=== PATIENT | male | born 2005 | race Caucasian/White ===

== ENCOUNTER 2023-06-17 00:21 | Inpatient (IN) | payer OTHER ==
--- NOTE | 2023-06-17 00:44 | ED ---
Psych HPI - General Source: patient, family, police, RN notes reviewed, old records reviewed Limitations: no limitations - History of Present Illness MD Complaint: altered mental status Associated Psychiatric Symptoms: racing thoughts, delusions Quality: constant Improves With: none Associated Symptoms: denies other symptoms Treatments Prior to Arrival: placed on mental health hold If Self Harm: admits thoughts of self harm <Kornad Tellez - Last Filed: 06/17/23 07:55> <Konrad Shah - Last Filed: 06/17/23 13:53> - General Chief Complaint: Psychiatric Symptoms Stated Complaint: Petition Time Seen by Provider: 06/17/23 00:36 - History of Present Illness Initial Comments: This is a 18-year-old male to the emergency department for evaluation of psychiatric illness. Patient has significant psychiatric disease and presenting with psychosis psychotic take symptoms but denying homicidal or suicidal thoughts. (Konrad Tellez) - Related Data Allergies Allergy/AdvReac Type Severity Reaction Status Date / Time No Known Allergies Allergy Verified 06/17/23 12:11 Review of Systems ROS Other: All systems not noted in ROS Statement are negative. <Konrad Tellez - Last Filed: 06/17/23 07:55> ROS Other: All systems not noted in ROS Statement are negative. <Konrad Shah - Last Filed: 06/17/23 13:53> ROS Statement: Those systems with pertinent positive or pertinent negative responses have been documented in the HPI. Past Medical History Past Medical History: No Reported History History of Any Multi-Drug Resistant Organisms: None Reported Past Surgical History: No Surgical Hx Reported Past Psychological History: PTSD Past Alcohol Use History: None Reported, Occasional Past Drug Use History: Marijuana <Konrad Tellez - Last Filed: 06/17/23 07:55> General Exam Limitations: no limitations General appearance: alert, in no apparent distress Head exam: Present: atraumatic, normocephalic, normal inspection Eye exam: Present: normal appearance, PERRL, EOMI. Absent: scleral icterus, conjunctival injection, periorbital swelling ENT exam: Present: normal exam, mucous membranes moist Neck exam: Present: normal inspection. Absent: tenderness, meningismus, lymphadenopathy Respiratory exam: Present: normal lung sounds bilaterally. Absent: respiratory distress, wheezes, rales, rhonchi, stridor Cardiovascular Exam: Present: regular rate, normal rhythm, normal heart sounds. Absent: systolic murmur, diastolic murmur, rubs, gallop, clicks GI/Abdominal exam: Present: soft, normal bowel sounds. Absent: distended, tenderness, guarding, rebound, rigid Extremities exam: Present: normal inspection, full ROM, normal capillary refill. Absent: tenderness, pedal edema, joint swelling, calf tenderness Back exam: Present: normal inspection Neurological exam: Present: alert, oriented X3, CN II-XII intact Psychiatric exam: Present: normal affect, normal mood Skin exam: Present: warm, dry, intact, normal color. Absent: rash <Konrad Tellez - Last Filed: 06/17/23 07:55> Course <Konrad Tellez - Last Filed: 06/17/23 07:55> Vital Signs 06/17/23 00:26 Temperature 97.7 F Pulse Rate 58 L Respiratory 18 Rate Blood Pressure 146/81 O2 Sat by Pulse 100 Oximetry - Reevaluation(s) Reevaluation #1: 06/17/23 07:55 Medical record is reviewed (Konrad Tellez) Reevaluation #2: 06/17/23 07:55 Clear for psychiatric evaluation (Konrad Tellez) Medical Decision Making <Konrad Tellez - Last Filed: 06/17/23 07:55> <Konrad Shah - Last Filed: 06/17/23 13:53> - Medical Decision Making 18 male to the ER for evaluation. Patient presents today for evaluation regards to psychiatric illness (Konrad Tellez) Was patient admitted / discharged? Hospital course, mention meds given and route, prescriptions, significant lab abnormalities, going to OR and other pertinent info. @ -Patient was evaluated by EPS they decided to admit the patient patient will be admitted to the psychiatric floor Undiagnosed new problem with uncertain prognosis? @ -No Drug Therapy requiring intensive monitoring for toxicity (Heparin, Nitro, Insulin, Cardizem)? @ -No Were any procedures done? @ -No Diagnosis/symptom? @ Acute psychosis Acute, or Chronic, or Acute on Chronic? @ -Acute Uncomplicated (without systemic symptoms) or Complicated (systemic symptoms)? @ -Complicated Side effects of treatment? @ -No Exacerbation, Progression, or Severe Exacerbation? @ -No Poses a threat to life or bodily function? How? (Chest pain, USA, CA, pneumonia, PE, COPD, DKA, ARF, appy, cholecystitis, CVA, Diverticulitis, Homicidal, Suicidal, threat to staff... and all critical care pts) @ -No (Konrad Shah) - Lab Data Lab Results 06/17/23 Range/Units 01:40 Urine Opiates Screen Not Detected (NotDetected) Ur Oxycodone Screen Not Detected (NotDetected) Urine Methadone Screen Not Detected (NotDetected) Ur Propoxyphene Screen Not Detected (NotDetected) Ur Barbiturates Screen Not Detected (NotDetected) U Tricyclic Antidepress Not Detected (NotDetected) Ur Phencyclidine Scrn Not Detected (NotDetected) Ur Amphetamines Screen Not Detected (NotDetected) U Methamphetamines Scrn Not Detected (NotDetected) U Benzodiazepines Scrn Not Detected (NotDetected) Urine Cocaine Screen Not Detected (NotDetected) U Marijuana (THC) Screen Detected H (NotDetected) Disposition <Konrad Tellez - Last Filed: 06/17/23 07:55> Time of Disposition: 13:52 <Konrad Shah - Last Filed: 06/17/23 13:53> Clinical Impression: Psychosis Disposition: ADMITTED IP TO THIS HOSP Referrals: Steven Orr DO [Primary Care Provider] - 1-2 days
[2023-06-17 02:15] LABS: Amphetamine Screen,Urine Not Detected (NotDetected); Barbiturate Screen,Urine Not Detected (NotDetected); Benzodiazepines Screen,Urine Not Detected (NotDetected); Cocaine Screen,Urine Not Detected (NotDetected); Methadone Screen, Urine Not Detected (NotDetected); Opiate Screen,Urine Not Detected (NotDetected); Oxycodone Screen, Urine Not Detected (NotDetected); Phencyclidine Screen,Urine Not Detected (NotDetected); Tricyclic Antidepressant,Urine Not Detected (NotDetected); Urn Cannabinoid Scrn Detected (NotDetected)
[2023-06-17 15:16] LABS: Appearance,Urine Clear (Clear); Bilirubin,Urine Negative (Negative); Blood,Urine Negative (Negative); Color,Urine Yellow; Glucose,Urine (UA) Negative (Negative); Ketones,Urine 2+ (Negative); Leukocyte Esterase,Urine Negative (Negative); Nitrite,Urine Negative (Negative); PH, Urine 5.5 (5.0-8.0); Protein,Urine Trace (Negative); Specific Gravity,Urine 1.029 (1.001-1.035); Urobilinogen,Urine <2.0 mg/dL (<2.0)
[2023-06-17] MEDS ORDERED: MAG HYDROX/AL HYDROX/SIMETH 30 ML CUP PO PRN (16:24)
[2023-06-17] MEDS ORDERED: haloperidoL 5 MG TAB PO PRN ×2 (16:24→16:32)
[2023-06-17] MEDS ORDERED: MAGNESIUM HYDROXIDE 2,400 MG/30 ML CUP PO PRN (16:24)
[2023-06-17] MEDS ORDERED: ACETAMINOPHEN TAB 325 MG TAB PO PRN (16:24)
[2023-06-17] MEDS ORDERED: LORazepam 2 MG/ML INJ IM PRN (16:32)
[2023-06-17] MEDS ORDERED: HALOPERIDOL LACTATE 5 MG/ML 1 ML VIAL IM PRN (18:40)
[2023-06-18] MEDS: NICOTINE 14MG/24HR PATCH TRANSDERM SCH (08:50)
--- NOTE | 2023-06-18 12:13 | P.HP ---
Psychiatric H&P - . History & Physical: Allergies Allergy/AdvReac Type Severity Reaction Status Date / Time No Known Allergies Allergy Verified 06/17/23 12:11 Vital Signs Temp 98.5 F 06/17/23 17:16 Pulse 83 06/17/23 17:16 Resp 18 06/17/23 17:16 BP 143/84 06/17/23 17:16 Pulse Ox 99 06/17/23 16:28 FiO2 Intake & Output 06/17/23 06/18/23 06/18/23 18:59 06:59 18:59 Weight 59.92 kg Laboratory Last Values Urine Color Yellow 06/17/23 14:40 Urine Appearance Clear (Clear) 06/17/23 14:40 Urine pH 5.5 (5.0-8.0) 06/17/23 14:40 Ur Specific [place] 1.029 (1.001-1.035) 06/17/23 14:40 Urine Protein Trace (Negative) H 06/17/23 14:40 Urine Glucose (UA) Negative (Negative) 06/17/23 14:40 Urine Ketones 2+ (Negative) H 06/17/23 14:40 Urine Blood Negative (Negative) 06/17/23 14:40 Urine Nitrite Negative (Negative) 06/17/23 14:40 Urine Bilirubin Negative (Negative) 06/17/23 14:40 Urine Urobilinogen <2.0 mg/dL (<2.0) 06/17/23 14:40 Ur Leukocyte Esterase Negative (Negative) 06/17/23 14:40 Urine Opiates Screen Not Detected (NotDetected) 06/17/23 01:40 Ur Oxycodone Screen Not Detected (NotDetected) 06/17/23 01:40 Urine Methadone Screen Not Detected (NotDetected) 06/17/23 01:40 Ur Propoxyphene Screen Not Detected (NotDetected) 06/17/23 01:40 Ur Barbiturates Screen Not Detected (NotDetected) 06/17/23 01:40 U Tricyclic Antidepress Not Detected (NotDetected) 06/17/23 01:40 Ur Phencyclidine Scrn Not Detected (NotDetected) 06/17/23 01:40 Ur Amphetamines Screen Not Detected (NotDetected) 06/17/23 01:40 U Methamphetamines Scrn Not Detected (NotDetected) 06/17/23 01:40 U Benzodiazepines Scrn Not Detected (NotDetected) 06/17/23 01:40 Urine Cocaine Screen Not Detected (NotDetected) 06/17/23 01:40 U Marijuana (THC) Screen Detected (NotDetected) H 06/17/23 01:40 Coronavirus (PCR) Not Detected (Not Detectd) 06/17/23 14:40 06/18/23 12:07 IDENTIFYING DATA: Patient is a 18-year-old male who is admitted for psychosis HPI: States that he "voluntarily signing myself and" throughout the interview, patient made several bizarre statements. He stated "we were running out of time before getting free" and that he wanted to "set course and record on a better path" he stated "we are nearing some disasters." He stated, "I was kept in the dark." At this time, patient's family came to visit and interview was stopped. He did agree to start risperdal. Interview will be completed tomorrow. Per nursing staff, patient has been acting bizarre, he put a paper bag over his head, and earlier today patient was reading very very loudly. He needed Haldol and Ativan PRN PAST PSYCHIATRIC HISTORY: none per chart PMH: none per chart ALLERGIES: as per EMR CHEMICAL DEPENDENCY HISTORY: UDS positive for cannibis FAMILY PSYCHIATRIC/SUBSTANCE USE HISTORY: deferred SOCIAL HISTORY: deferred. MENTAL STATUS EXAM: General Appearance: 18-year-old male who appears older than stated age, dressed appropriately. Grooming is very untidy and messy Behavior: Patient is seated without any agitated behavior Speech: Patient's speech is nonpressured Mood/Affect: Full range of affect Suicidality/Homicidality: No suicidal or homicidal ideations Perceptions: Bonding to internal stimuli Though content/process: Several delusions during the interview Memory and concentration: AOX3, grossly intact for the purposes of this session. Judgment and insight: [poor] STRENGTHS/WEAKNESSES: strength is that patient is [good family support]. Weakness is that patient [has poor judgment and is impulsive] INTELLECT: [Could not assess] IMPRESSIONS: Psychosis unspecified PLAN: -Patient is admitted under [voluntary] status to MHU for stabilization of psychiatric symptoms and safety. -Medications : Will start patient on risperdal -Ativan [and Haldol] PRN for agitation/aggression -Patient was informed of the risks, benefits and side effects of the medication and patient verbally consented to taking the medications. Patient signed med consent form and was placed in chart. -Internal Medicine consult to perform medical evaluation and physical. -SW on board for discharge planning. Encourage patient to participate in groups to work on coping skills. [] 06/18/23 12:10
[2023-06-18 12:20] LABS: HCT 42.3 % (39.0-53.0); HGB 13.8 gm/dL (13.0-17.5); MCHC 32.7 g/dL (31.0-37.0); MCV 91.8 fL (80.0-100.0); Mean Platelet Volume 7.9; Platelet Count 196 k/uL (150-450); RBC 4.61 m/uL (4.30-5.90)
[2023-06-18 12:26] LABS: ALT 38 U/L (4-49); African American GFR (CKD) >90 (>60 ml/min/1.73 sqM); Albumin 4.4 g/dL (3.5-5.0); Anion Gap 10 mmol/L; Blood Urea Nitrogen 15 mg/dL (9-20); Calcium 9.3 mg/dL (8.4-10.2); Carbon Dioxide 23 mmol/L (22-30); Chloride 105 mmol/L (98-107); Glucose 66 mg/dL (74-99); Non-African American GFR(CKD) >90 (>60 ml/min/1.73 sqM); Sodium 138 mmol/L (137-145); Total Bilirubin 0.8 mg/dL (0.2-1.3); Total Protein 6.6 g/dL (6.3-8.2)
[2023-06-18 12:28] LABS: Potassium 4.7 mmol/L (3.5-5.1)
[2023-06-18 12:29] LABS: AST 57 U/L (17-59); Alkaline Phosphatase 86 U/L (38-126)
[2023-06-18] MEDS ORDERED: MECLIZINE 25 MG TAB PO PRN (12:58)
--- NOTE | 2023-06-18 13:01 | P.CONS ---
History of Present Illness - Reason for Consult Consult date: 06/18/23 - Chief Complaint Admitted for psychosis - History of Present Illness * 18-year-old gentleman with no significant past medical history was admitted to behavioral health unit secondary to patient made bizarre statements. Patient was noted to be delusional * During my encounter patient was alert and oriented 3 however did have drain of thoughts. * Blood work obtained including hematology essentially normal. Serum chemistry showed normal renal profile, liver profile TSH was suppressed at 0.413 Will check free T4 levels as well * [facility] drug screen positive for marijuana REVIEW OF SYSTEMS: CONSTITUTIONAL: No fever, no malaise, no fatigue. HEENT: No recent visual problems or hearing problems. Denied any sore throat. CARDIOVASCULAR: No chest pain, orthopnea, PND, no palpitations, no syncope. PULMONARY: No shortness of breath, no cough, no hemoptysis. GASTROINTESTINAL: No diarrhea, no nausea, no vomiting, no abdominal pain. NEUROLOGICAL: No headaches, no weakness, no numbness. HEMATOLOGICAL: Denies any bleeding or petechiae. GENITOURINARY: Denies any burning micturition, frequency, or urgency. MUSCULOSKELETAL/RHEUMATOLOGICAL: Denies any joint pain, swelling, or any muscle pain. ENDOCRINE: Denies any polyuria or polydipsia. PHYSICAL EXAMINATION: GENERAL: The patient is alert and oriented x3, not in any acute distress. Well developed, well nourished. HEENT: Pupils are round and equally reacting to light. EOMI. No scleral icterus. No conjunctival pallor. Normocephalic, atraumatic. No pharyngeal erythema. No thyromegaly. CARDIOVASCULAR: S1 and S2 present. No murmurs, rubs, or gallops. PULMONARY: Chest is clear to auscultation, no wheezing or crackles. ABDOMEN: Soft, nontender, nondistended, normoactive bowel sounds. No palpable organomegaly. MUSCULOSKELETAL: No joint swelling or deformity. EXTREMITIES: No cyanosis, clubbing, or pedal edema. NEUROLOGICAL: Gross neurological examination did not reveal any focal deficits. SKIN: No rashes. Past Medical History Past Medical History: No Reported History History of Any Multi-Drug Resistant Organisms: None Reported Past Surgical History: No Surgical Hx Reported Smoking Status: Current every day smoker Medications and Allergies Home Medications Medication Instructions Recorded Confirmed Type No Known Home Medications 06/17/23 06/17/23 History Allergies Allergy/AdvReac Type Severity Reaction Status Date / Time No Known Allergies Allergy Verified 06/17/23 12:11 Physical Exam Vitals: Vital Signs Temp Pulse Pulse Resp BP BP Pulse Ox 06/17/23 17:16 98.5 F 83 18 143/84 06/17/23 16:28 74 18 122/68 99 Intake and Output 06/17/23 06/18/23 06/18/23 22:59 06:59 14:59 Other: Weight 59.92 kg Results CBC & Chem 7: 06/18/23 09:57 06/18/23 09:57 Labs: Abnormal Lab Results - Last 24 Hours (Table) 06/17/23 06/18/23 Range/Units 14:40 09:57 Glucose 66 L (74-99) mg/dL TSH 0.413 L (0.465-4.680) mIU/L Urine Protein Trace H (Negative) Urine Ketones 2+ H (Negative) Assessment and Plan Assessment: Assessment and plan Acute psychosis Marijuana use Abnormal TSH Follow-up on free T4 levels, will need repeat TSH levels in 6 weeks In regards to acute psychosis continue management in the [facility]
[2023-06-18 13:43] LABS: T4, Free (Free Thyroxine) 1.26 ng/dL (0.78-2.19)
[2023-06-18] MEDS: LORazepam 1 MG TAB PO PRN (20:28)
[2023-06-18] MEDS: risperiDONE 1 MG TAB PO SCH (20:28)
[2023-06-19] MEDS: risperiDONE 1 MG TAB PO SCH ×2 (08:25→20:05)
[2023-06-19] MEDS: NICOTINE 14MG/24HR PATCH TRANSDERM SCH (10:10)
--- NOTE | 2023-06-19 10:31 | P.PN ---
Progress Note - Text Interval history: Patient was seen in his room and was directable and agreeable to speak with senior mortgage underwriter. Continuing the conversation from yesterday, patient continues to be paranoid. It appears that he has been delusional since age 16. He denies a history of auditory or visual hallucinations. He reports thought insertion since age 13 when his mom . He states that he has had periods of about a week in the past when he has had high energy, high activity, low sleep, and increased rate of speech. At this time patient denies any suicidal or homicidal ideations intent or plan. No side effects to his meds Past psychiatric history: States that he was at [facility] a few weeks ago involuntarily on a court order. States that he was only there for 24 hours although the paperwork states that he was therefore 8 days. He was likely there for psychosis and paranoia. He states that he is not on any medications and has not been on any medications in the past. Denies medical history, family history of mental illnesses or substance use, legal history States that he occasionally uses marijuana and he last used marijuana a long time ago although he used to use marijuana significantly Social history: States that his mom at age 13 due to lip liver cirrhosis. States that he very vividly remembers that day. There have been issues with inheritance since then and he is in court for it. He is currently a student at [employer]. He has an apartment in [place] and he lives here with his father. Denies physical or sexual abuse Mental status exam: General Appearance: [Patient appears to be older than stated age is alert, directable, and cooperative.] Behavior: [No agitated behavior. Patient is calm and directable] Speech: Patient's speech is fluent and nonpressured. Low volume Mood/Affect: Mood is improving , full range of affect, smiles appropriately and tearful appropriately when talking about his mom's passing Suicidality/Homicidality: Patient denies having any suicidal or homicidal ideation intent or plan. Perceptions: Patient denies any auditory or visual hallucinations. Though content/process: some delusions, but overall he appears to have improved from yesterday Memory and concentration: AOX3, grossly intact for the purposes of this session Judgment and insight: improving mildly but poor overall Assessment/Plan: Per patient's history, it appears that he would meet criteria for either schizophrenia or schizoaffective disorder: Bipolar type. further collateral from father will be useful in helping diagnosed the patient. Patient continues to meet criteria for inpatient psychiatric admission for symptom stabilization and safety.[Patient will be maintained on current psychotropic medication regimen.] Monitor for medication compliance and for any psychotropic medication side effects. Will continue to monitor ongoing response to treatment. Encouraged participation in milieu.
[2023-06-19] MEDS: LORazepam 1 MG TAB PO PRN (20:06)
[2023-06-20] MEDS: risperiDONE 1 MG TAB PO SCH (08:01)
[2023-06-20] MEDS: NICOTINE 14MG/24HR PATCH TRANSDERM SCH (08:02)
[2023-06-20] MEDS ORDERED: traZODone HCL 50 MG TAB PO PRN (12:59)
--- NOTE | 2023-06-20 13:04 | P.PN ---
Progress Note - Text Progress Note Date: 06/20/23 Interval History: Patient was seen [wandering the hallways] near the nurse's desk and was direct able and agreeable to speak with parts data writer. Patient was asked more about the circumstances of him coming to the hospital. Patient was rambling, he was illogical and fairly delusional. He spoke about writing a paper exposing different secrets about the world and science. He was also endorsing paranoia towards others. Patient had multiple loosely formed delusions. He was directable during conversation. He apparently was threatening to harm another patient on the unit and will be limited to not being able to go to the South end of the hallway. Patient claims that his appetite is fair at this time, states that he is sleeping fairly. At this time patient denies any suicidal or homical ideations, intent or plan. Patient denies any auditory, visual hallucinations and denies any paranoia or delusions. Patient denies any side effects from the medications and has been compliant with meds. He is agreeable to continue taking medications. Mental Status Exam: General Appearance: 18-year-old male who appears older than stated age, dressed appropriately. Grooming is improving. Behavior: Patient is seated without any agitated behavior. Appears to be paranoid. Speech: Patient's speech is nonpressured. [place] Mood/Affect: Claims his mood is "fine" and affect was constricted. Suicidality/Homicidality: No suicidal or homicidal ideations Perceptions: responding to internal stimuli Though content/process: Several delusions during the interview, endorsing paranoia. Memory and concentration: AOX3, grossly intact for the purposes of this session. Judgment and insight: [poor] IMPRESSIONS: Psychosis unspecified cannabis use disorder PLAN: -Patient is admitted under [voluntary] status to MHU for stabilization of psychiatric symptoms and safety. -Medications : increase risperdal po 2 mg bid for psychosis/paranoia. trazodone 50 mg qhs prn for insomnia. -Ativan [and Haldol] PRN for agitation/aggression -NRT - nicotine patch. -SW on board for discharge planning. Encourage patient to participate in groups to work on coping skills. patient is currently AFV.
[2023-06-20 16:02] LABS: Chol/HDL Ratio 2.53 Ratio; LDL Cholesterol,Calculated 92.4 mg/dL (0.0-131.0)
[2023-06-20] MEDS: LORazepam 1 MG TAB PO PRN (21:10)
[2023-06-20] MEDS: risperiDONE 2 MG TAB PO SCH (21:10)
[2023-06-21 04:24] VITALS: RESP 14
[2023-06-21] MEDS: risperiDONE 2 MG TAB PO SCH (08:20)
[2023-06-21] MEDS: NICOTINE 14MG/24HR PATCH TRANSDERM SCH (08:20)
--- NOTE | 2023-06-21 11:37 | P.PN ---
Progress Note - Text Progress Note Date: 06/21/23 Interval History: Patient was seen wandering the hallways near the nurse's desk and was directable and agreeable to speak with aligner typewriter. Patient was agreeable to speak in his room today. He was reading a book, he was able to describe very vague details about the book when asked by aligner typewriter. He states that he is doing "good" he was fairly directable today during conversation. He states that he has been trying to go to some groups and participate as best as he can. He claims that he has been speaking with his father and will be staying with him. He also claimed that he has an apartment in [place]. He was not focused on his delusions today and states that he is doing and tolerating his medications well. Claims that he slept fairly last night. We spoke about transitioning on to a long-acting injection to help with compliance and patient was agreeable to this today. We also answer questions about and discussed discharge planning. At this time patient denies any suicidal or homical ideations, intent or plan. Patient denies any auditory, visual hallucinations and denies any paranoia or delusions. Patient denies any side effects from the medications and has been compliant with meds. He is agreeable to continue taking medications. Mental Status Exam: General Appearance: 18-year-old male who appears older than stated age, dressed appropriately. Grooming is improving. Behavior: Patient is seated without any agitated behavior. Appears to be less paranoid. Speech: Patient's speech is nonpressured. [place] Mood/Affect: Claims his mood is "ok" and affect was constricted. Suicidality/Homicidality: No suicidal or homicidal ideations Perceptions: responding to internal stimuli Though content/process: less focused on delusions, less paranoia. more concrete and appropriate. Memory and concentration: AOX3, grossly intact for the purposes of this session. Judgment and insight: poor, improving mildly IMPRESSIONS: Psychosis unspecified cannabis use disorder PLAN: -Patient is admitted under voluntary status to MHU for stabilization of psychiatric symptoms and safety. -Medications : continue risperdal po 2 mg bid for psychosis/paranoia. trazodone 50 mg qhs prn for insomnia. will likely order LEDEZMA today depending on patients coverage either Perseris vs Invega sustenna. -Ativan and Haldol PRN for agitation/aggression -NRT - nicotine patch -SW on board for discharge planning. Encourage patient to participate in groups to work on coping skills. patient is currently AFV. will give LEDEZMA today and likely discharge patient back to parents house on .
[2023-06-21] MEDS ORDERED: PALIPERIDONE IM 234 MG/1.5 ML SYG IM STA (12:33)
[2023-06-21] MEDS ORDERED: risperiDONE 2 MG TAB PO ONE (21:00)
[2023-06-22] MEDS: LORazepam 1 MG TAB PO PRN (01:42)
[2023-06-22] MEDS: risperiDONE 1 MG TAB PO SCH ×2 (08:38→21:05)
[2023-06-22] MEDS: NICOTINE 14MG/24HR PATCH TRANSDERM SCH (08:39)
--- NOTE | 2023-06-22 12:06 | P.PN ---
Subjective Progress Note Date: 06/22/23 Principal diagnosis: IMPRESSIONS: Psychosis unspecified cannabis use disorder Patient Name: Fabian Anderson Date of : [birth year] Patient Status: Inpatient Attending Provider: Rudy Johnson Date: 06/22/23 Interval History: Patient was seen in the hallways hallways and was directable and agreeable to speak with publicity writer. 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 He also reports that he feels somewhat groggy with the medications since he received the IM Invega Sustenna Claims that he slept fairly last night. At this time patient denies any suicidal or homical ideations, intent or plan. Patient denies any auditory, visual hallucinations and denies any paranoia or delusions. Patient denies any side effects from the medications and has been compliant with meds. He is agreeable to continue taking medications. Mental Status Exam: General Appearance: 18-year-old male who appears older than stated age, dressed appropriately. Grooming is improving. Behavior: Patient is seated without any agitated behavior. Appears to be less paranoid. Speech: Patient's speech is nonpressured. [place] Mood/Affect: Claims his mood is "ok" and affect was constricted. Suicidality/Homicidality: No suicidal or homicidal ideations Perceptions: responding to internal stimuli Though content/process: less focused on delusions, less paranoia. more concrete and appropriate. Memory and concentration: AOX3, grossly intact for the purposes of this session. Judgment and insight: poor, IMPRESSIONS: Psychosis unspecified cannabis use disorder PLAN: Continue the current treatment plan: -Patient is admitted under voluntary status to MHU for stabilization of psychiatric symptoms and safety. -Medications : continue risperdal po 2 mg bid for psychosis/paranoia. trazodone 50 mg qhs prn for insomnia. will likely order LEDEZMA today depending on patients coverage either Perseris vs Invega sustenna. -Ativan and Haldol PRN for agitation/aggression -NRT - nicotine patch - on board for discharge planning. Encourage patient to participate in groups to work on coping skills. patient is currently AFV. will give LEDEZMA today and likely discharge patient back to [facility] house on . Addendum entered and electronically signed by Rudy Johnson MD 06/21/23 12:34: patient would be able to have Invega sustenna covered by insurance, will give loading dose 234 mg IM today and will be due for next dose of 156 IM in 1 week then three weeks after on 07/19 will be able to take the monthly mainetnennace dose of 117 mg IM. can still prepare for discharge in 2 days and continue decreasing risperdal PO. javier magaña MD Objective - Vital Signs Vital signs: Vital Signs Temp 96.9 F L 06/21/23 04:10 Pulse 121 H 06/21/23 04:10 Resp 14 06/21/23 04:10 BP 115/64 06/21/23 04:10 Pulse Ox 100 06/20/23 05:55 FiO2 - Labs CBC & Chem 7: 06/18/23 09:57 06/18/23 09:57
[2023-06-23] MEDS: risperiDONE 1 MG TAB PO SCH (08:34)
[2023-06-23] MEDS: NICOTINE 14MG/24HR PATCH TRANSDERM SCH (08:34)
--- NOTE | 2023-06-23 12:36 | P.PN ---
Subjective Progress Note Date: 06/23/23 Principal diagnosis: IMPRESSIONS: Psychosis unspecified cannabis use disorder Patient Name: Fabian Anderson Date of : [birth year] Patient Status: Inpatient Attending Provider: Rudy Johnson Date: 06/23/23 Subjective data: Patient was seen in his room and was directable and agreeable to speak with service writer. He also reports that he feels groggy with the medications since he received the IM Invega Sustenna as well as that now he feels very nauseous Claims that he did not sleep too well last night. At this time patient denies any suicidal or homical ideations, intent or plan. Patient denies any auditory, visual hallucinations and denies any paranoia or delusions. Patient denies any side effects from the medications and has been compliant with meds. He is agreeable to continue taking medications. Mental Status Exam: General Appearance: 18-year-old male who appears older than stated age, dressed appropriately. Grooming is improving. Behavior: Patient is seated without any agitated behavior. Appears to be less paranoid. Speech: Patient's speech is nonpressured. [place] Mood/Affect: Claims his mood is "ok" and affect was constricted. Suicidality/Homicidality: No suicidal or homicidal ideations Perceptions: responding to internal stimuli Though content/process: less focused on delusions, less paranoia. more concrete and appropriate. Memory and concentration: AOX3, grossly intact for the purposes of this session. Judgment and insight: poor, IMPRESSIONS: Psychosis unspecified cannabis use disorder PLAN: Continue the current treatment plan: -Patient is admitted under voluntary status to MHU for stabilization of psychiatric symptoms and safety. -Medications : continue risperdal po 2 mg bid for psychosis/paranoia. trazodone 50 mg qhs prn for insomnia. will likely order LEDEZMA today depending on patients coverage either Perseris vs Invega sustenna. -Ativan and Haldol PRN for agitation/aggression -NRT - nicotine patch -SW on board for discharge planning. Encourage patient to participate in groups to work on coping skills. patient is currently AFV. will give LEDEZMA today and likely discharge patient back to [facility] house on . Addendum entered and electronically signed by Rudy Johnson MD 06/21/23 12:34: patient would be able to have Invega sustenna covered by insurance, will give loading dose 234 mg IM today and will be due for next dose of 156 IM in 1 week then three weeks after on 07/19 will be able to take the monthly mainetnennace dose of 117 mg IM. can still prepare for discharge in 2 days and continue decreasing risperdal PO. Patient continues to need observation to rule out any untoward side effects that may be detrimental or harmful to the patient and may impact his compliance Also needs observation for his safety We'll discontinue the oral Risperdal which was being tapered as well as we'll stop the trazodone which may be contributing to the dizziness Continue to monitor Continue supportive care javier magaña MD Objective - Vital Signs Vital signs: Vital Signs Temp 96.9 F L 06/21/23 04:10 Pulse 94 06/23/23 10:29 Resp 14 06/21/23 04:10 BP 130/76 06/23/23 10:29 Pulse Ox 100 06/20/23 05:55 FiO2 - Labs CBC & Chem 7: 06/18/23 09:57 06/18/23 09:57
[2023-06-24 05:43] VITALS: BP 135/67; PULSE 111; TEMP 97.3
[2023-06-24] MEDS: NICOTINE 14MG/24HR PATCH TRANSDERM SCH (09:09)
--- NOTE | 2023-06-24 12:15 | P.DS ---
Providers Date of admission: 06/17/23 16:15 Attending physician: Rudy Johnson MD Consults: 06/17/23 16:24 Consult Physician Routine Consulting Provider: Judi Saeed Consult Reason/Comments: medical management Do you want consulting provider notified?: Yes Primary care physician: Steven [place] [facility] Course: Patient was seen in his room and was directable and agreeable to speak with senior medical writer. The patient reports that he is not experiencing any side effects and that he is feeling a lot better He denies that he is having any problems or issues and that he is ready to go home He feels that he feels that he has been helped and that he is willing to follow- up with outpatient At this time patient denies any suicidal or homical ideations, intent or plan. Patient denies any auditory, visual hallucinations and denies any paranoia or delusions. Patient denies any side effects from the medications and has been compliant with meds. He is agreeable to continue taking medications. Mental Status Exam: General Appearance: 18-year-old male who appears older than stated age, dressed appropriately. Grooming is improving. Behavior: Patient is seated without any agitated behavior. No signs of paranoia noted Speech: Patient's speech is nonpressured. [place] Mood/Affect: Claims his mood is "ok" and affect was constricted. Suicidality/Homicidality: No suicidal or homicidal ideations Perceptions: No auditory or visual hallucinations Though content/process: concrete and appropriate. Memory and concentration: AOX3, grossly intact for the purposes of this session. Judgment and insight: Partial IMPRESSIONS: Psychosis unspecified improved cannabis use disorder PLAN: Continue the current treatment plan: -Patient is admitted under voluntary status to MHU for stabilization of psychiatric symptoms and safety. -Medications : The patient is currently on no oral medications and is being switched to long-acting antipsychotic Invega -SW on board for discharge planning. Encourage patient to participate in groups to work on coping skills. patient is currently AFV. will give LEDEZMA today and likely discharge patient back to [facility] house on . patient would be able to have Invega sustenna covered by insurance, Patient has received the loading dose 234 mg IM and will be due for next dose of 156 IM in 1 week then three weeks after on 07/19 will be able to take the m onthly mainetnennace dose of 117 mg IM. can still prepare for discharge in 2 days and continue decreasing risperdal PO. Patient is result of side effects after discontinuation of the oral Risperdal Resident also has been discontinued Continue to monitor Continue supportive care The patient appears to have made good progress during the stay although his insight and his problem remains rather limited Patient remains compliant with his recommendations and for follow-up treatment and medications and to receive the long-acting antipsychotic as prescribed above Patient will be discharged related outpatient follow-up as directed. javier magaña MD Patient Condition at Discharge: Stable Plan - Discharge Summary Discharge Rx Participant: Yes New Discharge Prescriptions: No Action No Known Home Medications Discharge Medication List No Known Home Medications 06/17/23 [History] Follow up Appointment(s)/Referral(s): [facility] [Outside] - 06/29/23 9:30 am (with Chay[facility]) Steven Orr DO [Primary Care Provider] - 1-2 days Patient Instructions/Handouts: Cannabis Abuse (DC), Psychotic Disorder (DC) Activity/Diet/Wound Care/Special Instructions: Avoid the use of street drugs and alcohol. Take all medications as prescribed. When you are in need of refills on your medications, please contact your medical provider and/or outpatient psychiatrist/provider to have this done. Please go to your scheduled outpatient appointment for aftercare treatment. If symptoms return or become worse, call the crisis line at and/or go to the nearest emergency room for evaluation. National Suicide Hotline 817.
== END 2023-06-24 14:17 | disposition home or self-care (01) | DRG 885 ==
LOC: EC 00:21 → 3MHU 16:15
PROVIDERS: ADMIT Psychiatry & Neurology Psychiatry; ATTEND Psychiatry & Neurology Psychiatry
DX: F29 Unspecified psychosis not due to a substance or known physiological condition (principal); F12.90 Cannabis use, unspecified, uncomplicated; F17.200 Nicotine dependence, unspecified, uncomplicated; F43.10 Post-traumatic stress disorder, unspecified; Z63.4 Disappearance and death of family member
CPT/HCPCS: 80053; 80061; 80306; 81003; 82075; 83036; 84439; 84443; 84481; 85027; 87635; 99285

== ENCOUNTER 2024-03-08 08:24 | Emergency (ER) | payer OTHER ==
--- NOTE | 2024-03-08 08:38 | ED ---
General Adult HPI - General Stated complaint: R Thumb injury/Syncope Time Seen by Provider: 03/08/24 08:29 - History of Present Illness Initial comments: Dictation was produced using [employer] dictation software. please excuse any grammatical, word or spelling errors. 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 Patient states that he tripped over something reached out and abraised his thumb falling on outstretched hand. Patient states that he noted some pain. He noticed some blood all of a sudden passed out while his coworker was wrapping his thumb with some gauze. Patient denies any medical problems. Denies any cardiac history. Does complain of some thumb pain. The ROS documented in this emergency department record has been reviewed and confirmed by me. Those systems with pertinent positive or negative responses have been documented in the HPI. All other systems are other negative and/or noncontributory. - Related Data Home Medications Medication Instructions Recorded Confirmed Paliperidone IM [Invega Sustenna] 156 mg IM ONCE 06/24/23 06/24/23 Previous Rx's Medication Instructions Recorded Paliperidone IM [Invega Sustenna] 156 mg IM ONCE #1 ml 06/24/23 Allergies Allergy/AdvReac Type Severity Reaction Status Date / Time No Known Allergies Allergy Verified 03/08/24 08:43 Review of Systems ROS Statement: Those systems with pertinent positive or pertinent negative responses have been documented in the HPI. ROS Other: All systems not noted in ROS Statement are negative. Past Medical History Past Medical History: No Reported History History of Any Multi-Drug Resistant Organisms: None Reported Past Surgical History: No Surgical Hx Reported Smoking Status: Current every day smoker General Exam - General Exam Comments Initial Comments: General: Well-appearing, nontoxic, no acute distress. Head: Normocephalic, atraumatic Eyes: PERRLA, EOMI ENT: Airway patent Chest: Nonlabored breathing Skin: No visual rash, normal skin tone Neuro: Alert and oriented 3 Musculoskeletal: No gross abnormalities Right hand: Abrasion to the right thumb. No laceration Course Vital Signs 03/08/24 08:40 Temperature 98.7 F Pulse Rate 67 Respiratory 18 Rate Blood Pressure 143/107 O2 Sat by Pulse 97 Oximetry EKG Findings - EKG Comments: EKG Findings:: My EKG interpretation: Ventricular rate 61, sinus rhythm,. Oval 164, QRS 101, QTc 385. No IL prolongation, no QTC prolongation, no ST or T-wave changes noted. Overall, this EKG is unremarkable Medical Decision Making - Medical Decision Making Was pt. sent in by a medical professional or institution (, PA, MANAGED CARE PROVIDER, urgent care, hospital, or long term...) When possible be specific @ -No Did you speak to anyone other than the patient for history (EMS, parent, family, police, friend...)? What history was obtained from this source @ -No Did you review nursing and triage notes (agree or disagree)? Why? @ -I reviewed and agree with nursing and triage notes Were old charts reviewed (outside hosp., previous admission, EMS record, old EKG, old radiological studies, urgent care reports/EKG's, long term records)? Report findings @ -No old charts were reviewed Differential Diagnosis (chest pain, altered mental status, abdominal pain women, abdominal pain men, vaginal bleeding, musculoskeletal, weakness, fever, dyspnea, syncope, headache, dizziness, GI bleed, back pain, seizure, CVA, palpatations, mental health)? @ -Differential Syncope: Valvular disease, hypertrophic cardiomyopathy, pulmonary embolism, tamponade, tachycardia, bradycardia, [place], hypovolemia, hemorrhage, dissection, anemia, intracranial hemorrhage, seizure, hypoglycemia, carbon monoxide poisoning, this is not meant to be an all-inclusive list. EKG interpreted by me (3pts min.). @ -None done X-rays interpreted by me (1pt min.). @ -X-ray of the right first digit shows no occult fracture CT interpreted by me (1pt min.). @ -None done U/S interpreted by me (1pt. min.). @ -None done What testing was considered but not performed or refused? (CT, X-rays, U/S, labs)? Why? @ -None What meds were considered but not given or refused? Why? @ -None Was smoking cessation discussed for >3mins.? @ -No Were there social determinants of health that impacted care today? How? (Homelessness, low income, unemployed, alcoholism, drug addiction, transportation, low edu. Level, literacy, decrease access to med. care, snf, rehab)? @ -No Was there de-escalation of care discussed even if they declined (Discuss DNR or withdrawal of care, Hospice)? DNR status @ -No What co-morbidities impacted this encounter? (DM, HTN, Smoking, COPD, CAD, Cancer, CVA, ARF, Chemo, Hep., AIDS, mental health diagnosis, sleep apnea, morbid obesity)? @ -None Was patient admitted / discharged? Hospital course, mention meds given and route, prescriptions, significant lab abnormalities, going to OR and other pertinent info. @ -19-year-old male presents to the emergency department for passing out after injuring his finger. Patient has no cardiac comorbidities. Vital signs stable. X-ray of the hand shows no occult fracture. He has an abrasion to his finger. No indication for laceration repair. EKG is unremarkable. Patient discharged. Syncopal episode consistent with vasovagal syncope. Did you discuss the management of the patient with other professionals (professionals i.e. , PA, MANAGED CARE PROVIDER, lab, RT, psych nurse, social services specialist, research electrician, teacher, division officer weapons department, behavioral health case manager)? Give summary @ -No Was critical care preformed (if so, how long)? @ -No Undiagnosed new problem with uncertain prognosis? @ -No Drug Therapy requiring intensive monitoring for toxicity (Heparin, Nitro, Insulin, Cardizem)? @ -No Were any procedures done? @ -No Diagnosis/symptom? Acute, or Chronic, or Acute on Chronic? Uncomplicated (without systemic symptoms) or Complicated (systemic symptoms)? @ -Syncope, thumb contusion Side effects of treatment? @ -No Exacerbation, Progression, or Severe Exacerbation? @ -No Poses a threat to life or bodily function? How? (Chest pain, [place], [place], pneumonia, PE, COPD, DKA, ARF, appy, cholecystitis, CVA, Diverticulitis, Homicidal, Suicidal, threat to staff... and all critical care pts) @ -No Disposition Clinical Impression: Syncope, Abrasion of thumb Disposition: HOME SELF-CARE Condition: Good Instructions (If sedation given, give patient instructions): Syncope (ED) Is patient prescribed a controlled substance at d/c from ED?: No Referrals: Timbo Orr MD [Primary Care Provider] - 1-2 days Time of Disposition: 09:03
[2024-03-08 08:43] VITALS: RESP 18
[2024-03-08] MEDS: DIPH,PERTUS(ACELL)TETVAC-LF 0.5 ML VIAL IM ONE (08:51)
--- NOTE | 2024-03-08 09:00 | XR ---
EXAMINATION TYPE: XR hand limited RT DATE OF EXAM: 03/08/2024 8:53 AM CLINICAL INDICATION:Male, 19 years old with history of thumb abrasion; COMPARISON: None TECHNIQUE: XR hand limited RT Frontal, lateral and oblique views were obtained. FINDINGS: Normal alignment of the visualized joints. No acute osseous pathology is identified. No e vidence of soft tissue swelling. No significant degeneration IMPRESSION: No acute osseous pathology.
[2024-03-08 09:19] VITALS: BP 151/85; PULSE 96; TEMP 98.1
== END 2024-03-08 09:19 | disposition home or self-care (01) ==
LOC: EC 08:24
DX: S60.311A Abrasion of right thumb, initial encounter (principal); R55 Syncope and collapse; F17.200 Nicotine dependence, unspecified, uncomplicated; Z23 Encounter for immunization; W01.0XXA Fall on same level from slipping, tripping and stumbling without subsequent striking against object, initial encounter
CPT/HCPCS: 90471; 90715; 93005; 99284

== ENCOUNTER 2024-09-11 20:29 | Inpatient (IN) | payer OTHER ==
--- NOTE | 2024-09-11 21:20 | ED ---
Psych HPI <EdinMaged gallegos Elvis - Last Filed: 09/12/24 01:53> - General Source: police, RN notes reviewed, old records reviewed Mode of arrival: ambulatory Limitations: no limitations - History of Present Illness MD Complaint: altered mental status Associated Psychiatric Symptoms: racing thoughts Quality: constant, getting worse Improves With: none Worsens With: none Associated Symptoms: confusion Treatments Prior to Arrival: placed on mental health hold <Konrad Tellez - Last Filed: 09/17/24 22:58> - General Chief Complaint: Psychiatric Symptoms Stated Complaint: Mental Health Time Seen by Provider: 09/11/24 21:19 - History of Present Illness Initial Comments: This is a 19-year-old male to the ER today. This patient has today for evaluation of psychiatric illness petition by father for need for psychiatric placement (Konrad Tellez) - Related Data Home Medications Medication Instructions Recorded Confirmed Paliperidone IM [Invega Sustenna] 156 mg IM ONCE 06/24/23 06/24/23 Previous Rx's Medication Instructions Recorded Paliperidone IM [Invega Sustenna] 156 mg IM ONCE #1 ml 06/24/23 Allergies Allergy/AdvReac Type Severity Reaction Status Date / Time No Known Allergies Allergy Verified 03/08/24 08:43 Review of Systems ROS Other: All systems not noted in ROS Statement are negative. <EdinMaged smith - Last Filed: 09/12/24 01:53> ROS Other: All systems not noted in ROS Statement are negative. <Konrad Tellez - Last Filed: 09/17/24 22:58> ROS Statement: Those systems with pertinent positive or pertinent negative responses have been documented in the HPI. Past Medical History Past Medical History: No Reported History History of Any Multi-Drug Resistant Organisms: None Reported Past Surgical History: No Surgical Hx Reported Past Psychological History: PTSD Smoking Status: Current every day smoker Past Alcohol Use History: Occasional Past Drug Use History: Marijuana - Past Family History Father Family Medical History: CVA/TIA Additional Family Medical History / Comment(s): Hx stroke 2022 Mother Additional Family Medical History / Comment(s): Patient mother 2017 <Konrad Tellez - Last Filed: 09/17/24 22:58> General Exam Limitations: no limitations General appearance: alert, in no apparent distress, anxious Head exam: Present: atraumatic, normocephalic, normal inspection Eye exam: Present: normal appearance, PERRL, EOMI. Absent: scleral icterus, con junctival injection, periorbital swelling ENT exam: Present: normal exam, mucous membranes moist Neck exam: Present: normal inspection. Absent: tenderness, meningismus, lymphadenopathy Respiratory exam: Present: normal lung sounds bilaterally. Absent: respiratory distress, wheezes, rales, rhonchi, stridor Cardiovascular Exam: Present: normal rhythm, tachycardia, normal heart sounds. Absent: systolic murmur, diastolic murmur, rubs, gallop, clicks GI/Abdominal exam: Present: soft, normal bowel sounds. Absent: distended, tenderness, guarding, rebound, rigid Extremities exam: Present: normal inspection, full ROM, normal capillary refill. Absent: tenderness, pedal edema, joint swelling, calf tenderness Back exam: Present: normal inspection Neurological exam: Present: alert, oriented X3, CN II-XII intact Psychiatric exam: Present: normal affect, normal mood Skin exam: Present: warm, dry, intact, normal color. Absent: rash <Konrad Tellez - Last Filed: 09/17/24 22:58> Course <Konrad Tellez - Last Filed: 09/17/24 22:58> Vital Signs 09/11/24 21:12 Temperature 97.6 F Pulse Rate 121 H Respiratory 20 Rate Blood Pressure 150/107 O2 Sat by Pulse 98 Oximetry - Reevaluation(s) Reevaluation #1: 09/11/24 21:26 Medical record is reviewed (Konrad Tellez) Reevaluation #2: Medically clear for psychiatric evaluation (Konrad Tellez) Reevaluation #3: Differential Mental Health Depression, anxiety, bipolar, psychosis, schizophrenia, borderline personality, situational depression, adjustment disorder, behavioral disorder, brain tumor, malingering, substance abuse, encephalopathy, medication reaction, dementia, hypothyroidism, degenerative neurologic disorder, lupus.... This is not meant to be all-inclusive list (Konrad Tellez) Medical Decision Making <Maged Bailey - Last Filed: 09/12/24 01:53> - Lab Data Result diagrams: 09/13/24 06:12 09/13/24 06:12 <Konrad Tellez B - Last Filed: 09/17/24 22:58> - Medical Decision Making Was pt. sent in by a medical professional or institution (ADEEL Yanez, LUGGAGE [employer], urgent care, hospital, or shelter...) When possible be specific @ -No Did you speak to anyone other than the patient for history (EMS, parent, family, police, friend...)? What history was obtained from this source @ -No Did you review nursing and triage notes (agree or disagree)? Why? @ -I reviewed and agree with nursing and triage notes Were old charts reviewed (outside hosp., previous admission, EMS record, old EKG, old radiological studies, urgent care reports/EKG's, shelter records)? Report findings @ -No old charts were reviewed Differential Mental Health Depression, anxiety, bipolar, psychosis, schizophrenia, borderline personality, situational depression, adjustment disorder, behavioral disorder, brain tumor, malingering, substance abuse, encephalopathy, medication reaction, dementia, hypothyroidism, degenerative neurologic disorder, lupus.... This is not meant to be all-inclusive list EKG interpreted by me (3pts min.). @ -As above X-rays interpreted by me (1pt min.). @ -None done CT interpreted by me (1pt min.). @ -None done U/S interpreted by me (1pt. min.). @ -None done What testing was considered but not performed or refused? (CT, X-rays, U/S, labs)? Why? @ -None What meds were considered but not given or refused? Why? @ -None Did you discuss the management of the patient with other professionals (professionals i.e. ADEEL Yanez, [employer], lab, RT, psych nurse, home health care social worker, grappler, teacher, global chief creative officer, rn case manager)? Give summary @ -No Was smoking cessation discussed for >3mins.? @ -No Was critical care preformed (if so, how long)? @ -No Were there social determinants of health that impacted care today? How? (Homelessness, low income, unemployed, alcoholism, drug addiction, transportation, low edu. Level, literacy, decrease access to med. care, senior care, rehab)? @ -No Was there de-escalation of care discussed even if they declined (Discuss DNR or withdrawal of care, Hospice)? DNR status @ -No What co-morbidities impacted this encounter? (DM, HTN, Smoking, COPD, CAD, Cancer, CVA, ARF, Chemo, Hep., AIDS, mental health diagnosis, sleep apnea, morb id obesity)? @ -None Was patient admitted / discharged? Hospital course, mention meds given and rou te, prescriptions, significant lab abnormalities, going to OR and other pertinent info. @Patient was medically cleared by the previous physician and was evaluated by EPS, patient will require inpatient psychiatric evaluation for acute psychosis. I did complete a clinical CERT on this patient. Undiagnosed new problem with uncertain prognosis? @ -No Drug Therapy requiring intensive monitoring for toxicity (Heparin, Nitro, Insulin, Cardizem)? @ -No Were any procedures done? @ -No Diagnosis/symptom? @Acute psychosis Acute, or Chronic, or Acute on Chronic? @ -[Acute Uncomplicated (without systemic symptoms) or Complicated (systemic symptoms)? @ -Default Side effects of treatment? @ -No Exacerbation, Progression, or Severe Exacerbation? @ -No Poses a threat to life or bodily function? How? (Chest pain, USA, MT, pneumonia, PE, COPD, DKA, ARF, appy, cholecystitis, CVA, Diverticulitis, Homicidal, Suicidal, threat to staff... and all critical care pts) @ - yes, self-harm (Maged Bailey) - Lab Data Lab Results 09/12/24 09/12/24 09/12/24 Range/Units 02:00 02:10 02:10 Urine Color Light Yellow Urine Appearance Clear (Clear) Urine pH 5.5 (5.0-8.0) Ur Specific [place] 1.019 (1.001-1.035) Urine Protein Negative (Negative) Urine Glucose (UA) Negative (Negative) Urine Ketones 1+ H (Negative) Urine Blood Negative (Negative) Urine Nitrite Negative (Negative) Urine Bilirubin Negative (Negative) Urine Urobilinogen <2.0 (<2.0) mg/dL Ur Leukocyte Esterase Negative (Negative) Urine Opiates Screen Not Detected (NotDetected) Ur Oxycodone Screen Not Detected (NotDetected) Urine Methadone Screen Not Detected (NotDetected) Ur Barbiturates Screen Not Detected (NotDetected) U Tricyclic Antidepress Not Detected (NotDetected) Ur Phencyclidine Scrn Not Detected (NotDetected) Ur Amphetamines Screen Not Detected (NotDetected) U Methamphetamines Scrn Not Detected (NotDetected) U Benzodiazepines Scrn Not Detected (NotDetected) Urine Cocaine Screen Not Detected (NotDetected) U Marijuana (THC) Screen Detected H (NotDetected) SARS-CoV-2 (PCR) Not Detected (Not Detectd) Disposition Is patient prescribed a controlled substance at d/c from ED?: No Time of Disposition: 01:54 <Maged Bailey - Last Filed: 09/12/24 01:53> <Konrad Tellez - Last Filed: 09/17/24 22:58> Clinical Impression: Psychosis Disposition: ADMITTED IP TO THIS HOSP Condition: Stable
[2024-09-12 03:33] LABS: Amphetamine Screen,Urine Not Detected (NotDetected); Barbiturate Screen,Urine Not Detected (NotDetected); Benzodiazepines Screen,Urine Not Detected (NotDetected); Cocaine Screen,Urine Not Detected (NotDetected); Methadone Screen, Urine Not Detected (NotDetected); Opiate Screen,Urine Not Detected (NotDetected); Oxycodone Screen, Urine Not Detected (NotDetected); Phencyclidine Screen,Urine Not Detected (NotDetected); Tricyclic Antidepressant,Urine Not Detected (NotDetected); Urn Cannabinoid Scrn Detected (NotDetected)
[2024-09-12] MEDS ORDERED: ACETAMINOPHEN TAB 325 MG TAB PO PRN (03:47)
[2024-09-12] MEDS: LORazepam 2 MG/ML INJ IM PRN (04:55)
[2024-09-12] MEDS: HALOPERIDOL LACTATE 5 MG/ML 1 ML VIAL IM PRN (04:56)
[2024-09-12] MEDS ORDERED: MAG HYDROX/AL HYDROX/SIMETH 355 ML BOTTLE PO PRN (08:00)
[2024-09-12] MEDS: NICOTINE 14MG/24HR PATCH TRANSDERM SCH (09:30)
[2024-09-12 09:31] LABS: Appearance,Urine Clear (Clear); Bilirubin,Urine Negative (Negative); Blood,Urine Negative (Negative); Color,Urine Light Yellow; Glucose,Urine (UA) Negative (Negative); Ketones,Urine 1+ (Negative); Leukocyte Esterase,Urine Negative (Negative); Nitrite,Urine Negative (Negative); PH, Urine 5.5 (5.0-8.0); Protein,Urine Negative (Negative); Specific Gravity,Urine 1.019 (1.001-1.035); Urobilinogen,Urine <2.0 mg/dL (<2.0)
[2024-09-12] MEDS: PALIPERIDONE 6 MG TAB.ER.24 PO SCH (12:48)
--- NOTE | 2024-09-12 13:29 | P.HP ---
Psychiatric H&P - . 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 HPI: Fabian Anderson is a 19 year old man with a history of psychosis and trauma who presented to the ER, petitioned by his father, due to concern for abnormal behavior. He was admitted overnight and seen this morning. He received Haldol/Ativan shortly after arriving on the unit after becoming acutely agitated and aggressive; he subsequently slept the rest of the morning. At the time of the evaluation he was asleep but did awake and was willing to engage though shared he was "tired." When asked what brought him into the hospital he said "I really do not remember". He did shared that he just completed his semester at [employer] where he is studying pre-law, and he "knows a thing or two". He went on to say that he has been experiencing a lot of "anxiety" lately and is open to being in the hospital because he wants to feel "better". He denies experiencing sadness or depressed mood recently. When asked how his semester went he was unable to elaborate. He did not clearly answer questions about sleep, appetite, or energy. However he was able to read aloud and understand the documentations for voluntary admission to the hospital and was agreeable to admission. He also was open to resuming medications that have been helpful for him in the past following our discussion. He denies experiencing auditory or visual hallucinations, though he was observed gesturing during the conversation and ways that were not completely congruent with his speech. In addition, he denies suicidal and homicidal ideation, intent, and plan. Mr. Anderson reports occ asional use of marijuana, though he stated he has "not use any recently". UDS on admission was positive for cannabinoids. He denies drinking alcohol and also denies using cocaine, heroin, methamphetamine, LSD, or PCP. Additional information regarding the patient's presentation is available via the EPS Assessment note. Per EPS Assessment: "Patient had been brought in by his father, who petitioned patient and was sitting in the hallway. Petition states "talks to himself and makes random hand movements". Patient was responding to internal stimuli as publicity writer entered the room. Patient denies SI,HI,A/VH. Patient states "I've been trying to profess like Leonid Gamez" "I hear everything, new prying eyes" "I selpt very long for everyone, packet right, could never score". During assessment patient is making bizzare hand gestures and at times whispering towards the television. Patient tone of voice varies, he begins to talk with an accent at times. Patient appears dissheveled is labile- going from crying to banging pillow on stretcher and yelling. Patient makes bizarre noises with his mouth "I can't help but slip into other tongues" "I have PTSD losing my mom at 13, ever since COVID in " then begins laughing inappropriately. Patient repeated 2-3x "Lord over us in their tiny Thaddeus sprinkle dink vote for little yue man". O And M Supervisor spoke privately with father. Patient father stated in his senior year of high school pt friend committed suicide, pt mother in 2014, pt grandmother in 2022, pt father had stroke in March 2023 and his grandfather the same day. Patient father states pt stopped following up with outpt treatment, is taking 15 credit hours, was working 20+ hr weekly with the [employer] and was still battling his uncles for his mother's estate in probate which finalized 09/03/24. Patient father stated patient came home from college 08/24/24 and progressively began getting worse, has not slept more then 3 hrs in 72 hr time period. Patient father began giving pt old prescription of buspar 10 mg po daily for last 3 days without success. Patient father state's patient tries to stay busy but has not dealt with all the trauma and processed the in their family." PAST PSYCHIATRIC HISTORY: Patient has a history of prior admission to this unit in 2022 for unspecified psychosis. At that time he was started on risperidone and then transition to Invega Sustenna which resulted in improvement in his symptoms and return to baseline functioning. At present he is not currently receiving any psychiatric care, nor is he on any medications. There is no documented history of suicide attempts. PMH: as per ER note CHEMICAL DEPENDENCY HISTORY: as per HPI FAMILY PSYCHIATRIC/SUBSTANCE USE HISTORY: Patient unable to answer. Per review of records, patient's Mom when patient was 13. SOCIAL HISTORY: Patient lost his Mom at age 13 and has since been supported by his father. He is currently a student at [employer], studying pre-law. He also worked part-time this semester. Allergies Allergy/AdvReac Type Severity Reaction Status Date / Time No Known Allergies Allergy Verified 03/08/24 08:43 Vital Signs Temp 98.0 F 09/12/24 05:05 Pulse 53 L 09/12/24 05:05 Resp 16 09/12/24 05:05 BP 128/65 09/12/24 05:05 Pulse Ox 97 09/12/24 05:05 FiO2 Intake & Output 09/11/24 09/12/24 09/12/24 18:59 06:59 18:59 Weight 59.534 kg Laboratory Last Values Urine Color Light Yellow 09/12/24 02:10 Urine Appearance Clear (Clear) 09/12/24 02:10 Urine pH 5.5 (5.0-8.0) 09/12/24 02:10 Ur Specific [place] 1.019 (1.001-1.035) 09/12/24 02:10 Urine Protein Negative (Negative) 09/12/24 02:10 Urine Glucose (UA) Negative (Negative) 09/12/24 02:10 Urine Ketones 1+ (Negative) H 09/12/24 02:10 Urine Blood Negative (Negative) 09/12/24 02:10 Urine Nitrite Negative (Negative) 09/12/24 02:10 Urine Bilirubin Negative (Negative) 09/12/24 02:10 Urine Urobilinogen <2.0 mg/dL (<2.0) 09/12/24 02:10 Ur Leukocyte Esterase Negative (Negative) 09/12/24 02:10 Urine Opiates Screen Not Detected (NotDetected) 09/12/24 02:10 Ur Oxycodone Screen Not Detected (NotDetected) 09/12/24 02:10 Urine Methadone Screen Not Detected (NotDetected) 09/12/24 02:10 Ur Barbiturates Screen Not Detected (NotDetected) 09/12/24 02:10 U Tricyclic Antidepress Not Detected (NotDetected) 09/12/24 02:10 Ur Phencyclidine Scrn Not Detected (NotDetected) 09/12/24 02:10 Ur Amphetamines Screen Not Detected (NotDetected) 09/12/24 02:10 U Methamphetamines Scrn Not Detected (NotDetected) 09/12/24 02:10 U Benzodiazepines Scrn Not Detected (NotDetected) 09/12/24 02:10 Urine Cocaine Screen Not Detected (NotDetected) 09/12/24 02:10 U Marijuana (THC) Screen Detected (NotDetected) H 09/12/24 02:10 SARS-CoV-2 (PCR) Not Detected (Not Detectd) 09/12/24 02:00 MENTAL STATUS EXAM: General Appearance: Patient appears to be stated age is drowsy, directable, and attempts to cooperate. Patient appears to have poor hygiene and grooming. Behavior: Patient is seated without any agitated behavior. Speech: Patient's speech is fluent and nonpressured. Mood/Affect: Patient reports their mood is "anxious", affect is congruent and constricted. Suicidality/Homicidality: Patient denies having any homicidal ideation, intent, or plan. Denies any suicidal ideations, intent, or plan Perceptions: Patient denies any visual hallucinations and denies any auditory hallucinations but does appear to be responding to internal stimuli Though content/process: There is concern for delusional thought content and thought process is tangential but redirectable. Memory and concentration: AOX3, grossly intact for the purposes of this session. Can spell "WORLD" backwards. Judgment and insight: Impaired STRENGTHS/WEAKNESSES: strength is that patient is resilient. Weakness is that patient has inconsistent adherence to treatment and substance use INTELLECT: Average IMPRESSIONS: Fabian Anderson is a 19 year old man with at least one prior inpatient admission for psychotic symptoms. He has a history of extensive trauma/loss secondary to losing his Mother and several other family members over the last few years. He was previously stabilized on a long-acting injection (Invega Sustenna) but did not continue on an outpatient basis. Despite not being engaged in care he was able to complete his semester and maintain part-time employment until slowly decompensating over the last two weeks. At home he was observed behaving strangely and responding to internal stimuli; similar behavior has been observed since arriving at the hospital. While he denied recent THC use his UDS was positive which either suggests recent use or lingering positive result from chronic use. While the recurrence of psychotic symptoms suggests a more persistent psychotic disorder, the patient has intermittently maintained a high level of functioning despite not being engaged in treatment. It seems possible that he experiences recurrent psychotic symptoms secondary to cannabis use, complicated by stressors. Will continue to explore the differential. - Unspecified psychotic disorder (consider cannabis-induced psychosis vs. schizophrenia) - Cannabis use PLAN: -Patient is admitted under voluntary status to [facility] for stabilization of psychiatric symptoms and safety. Patient has signed adult voluntary form and medication consent and is placed in patient's chart. -Medications : - Start Invega 6 mg PO daily for psychotic symptoms -Ativan and Haldol PRN for agitation/aggression -Patient was informed of the risks, benefits and side effects of the medication and patient verbally consented to taking the medications. Patient signed med consent form and was placed in chart. -Internal Medicine consult to perform medical evaluation and physical. -NRT -nicotine patch not needed as patient does not smoke -SW on board for discharge planning. Encourage patient to participate in groups to work on coping skills. Patient will benefit from engagement in outpatient care. 09/12/24 13:28
--- NOTE | 2024-09-12 13:41 | P.MDCNMH ---
History of Present Illness H&P Date: 09/12/24 History of present illness; patient 19-year-old gentleman with past medical significant for PTSD, psychosis who presented to the ER for psychiatric evaluation. Patient was brought after being petitioned by his father. Patient father noticed that the patient was responding to internal stimuli, patient was found to be talking to himself at home and whispering. Patient was also found to have aggressive behavior at times. Patient was not having any suicidal thoughts or homicidal thoughts. Because of the symptoms, patient brought to the ER UA done in the ER was negative Urine tox screen was positive for marijuana Patient admitted to inpatient psychiatry REVIEW OF SYSTEMS: CONSTITUTIONAL: No fever, no malaise, no fatigue. HEENT: No recent visual problems or hearing problems. Denied any sore throat. CARDIOVASCULAR: No chest pain, orthopnea, PND, no palpitations, no syncope. PULMONARY: No shortness of breath, no cough, no hemoptysis. GASTROINTESTINAL: No diarrhea, no nausea, no vomiting, no abdominal pain. NEUROLOGICAL: No headaches, no weakness, no numbness. HEMATOLOGICAL: Denies any bleeding or petechiae. GENITOURINARY: Denies any burning micturition, frequency, or urgency. MUSCULOSKELETAL/RHEUMATOLOGICAL: Denies any joint pain, swelling, or any muscle pain. ENDOCRINE: Denies any polyuria or polydipsia. The rest of the 14-point review of systems is negative. PHYSICAL EXAMINATION: GENERAL: The patient is alert and oriented x3, not in any acute distress. Well d eveloped, well nourished. HEENT: Pupils are round and equally reacting to light. EOMI. No scleral icterus. No conjunctival pallor. Normocephalic, atraumatic. No pharyngeal erythema. No thyromegaly. CARDIOVASCULAR: S1 and S2 present. No murmurs, rubs, or gallops. PULMONARY: Chest is clear to auscultation, no wheezing or crackles. ABDOMEN: Soft, nontender, nondistended, normoactive bowel sounds. No palpable organomegaly. MUSCULOSKELETAL: No joint swelling or deformity. EXTREMITIES: No cyanosis, clubbing, or pedal edema. NEUROLOGICAL: Gross neurological examination did not reveal any focal deficits. SKIN: No rashes. Assessment and plan Acute psychiatry PTSD Monitor vital signs Elopement precautions Continue psych meds per psychiatry team Labs and medication were reviewed.. Continue same treatment. Continue with symptomatic treatment. Resume home medication. Monitor labs and vitals. DVT and GI prophylaxis. Further recommendations as per clinical course of the patient Dictation was produced using Vanu dictation software. please excuse any grammatical, word or spelling errors. Past Medical History Past Medical History: No Reported History History of Any Multi-Drug Resistant Organisms: None Reported Past Surgical History: No Surgical Hx Reported Past Anesthesia/Blood Transfusion Reactions: No Reported Reaction Smoking Status: Current every day smoker - Past Family History Father Family Medical History: CVA/TIA Additional Family Medical History / Comment(s): Hx stroke 2022 Mother Additional Family Medical History / Comment(s): Patient mother 2017 Medications and Allergies Home Medications Medication Instructions Recorded Confirmed Type Paliperidone IM [Invega Sustenna] 156 mg IM ONCE 06/24/23 06/24/23 History Paliperidone IM [Invega Sustenna] 156 mg IM ONCE #1 ml 06/24/23 Rx Allergies Allergy/AdvReac Type Severity Reaction Status Date / Time No Known Allergies Allergy Verified 03/08/24 08:43 Physical Exam Vitals: Vital Signs Temp Pulse Pulse Resp BP BP Pulse Ox 09/12/24 05:05 98.0 F 53 L 16 128/65 97 09/11/24 21:12 97.6 F 121 H 20 150/107 98 Intake and Output 09/11/24 09/12/24 09/12/24 22:59 06:59 14:59 Other: Weight 61.915 kg 59.534 kg Cranial Nerve Examination - Cranial Nerves Cranial Nerve II- Optic: Intact (Cranial nerves II to XII intact) Cranial Nerve III- Oculomotor: Intact Cranial Nerve IV- Trochlear: Intact Cranial Nerve V- Trigeminal: Intact Cranial Nerve - Abducens: Intact Cranial Nerve VII- Facial: Intact Cranial Nerve VIII- Auditory: Intact Cranial Nerve IX- Glossopharyngeal: Intact Cranial Nerve X- Vagus: Intact Cranial Nerve XI- Accessory: Intact Cranial Nerve XII- Hypoglossal: Intact Results Labs: Abnormal Lab Results - Last 24 Hours (Table) 09/12/24 09/12/24 Range/Units 02:10 02:10 Urine Ketones 1+ H (Negative) U Marijuana (THC) Screen Detected H (NotDetected)
[2024-09-13] MEDS: LORazepam 1 MG TAB PO PRN (02:20)
[2024-09-13 06:44] LABS: Basophils # (A) 0.1 k/uL (0-0.2); Basophils % (A) 1 %; Eosinophils # (A) 0.2 k/uL (0-0.7); Eosinophils % (A) 3 %; HCT 41.6 % (39.0-53.0); HGB 13.9 gm/dL (13.0-17.5); Lymphocytes # (A) 2.7 k/uL (1.0-4.8); Lymphocytes % (A) 42 %; MCH 29.4 pg (25.0-35.0); MCHC 33.3 g/dL (31.0-37.0); MCV 88.4 fL (80.0-100.0); Mean Platelet Volume 7.9; Monocytes # (A) 0.5 k/uL (0-1.0); Monocytes % (A) 7 %; Neutrophils # (A) 2.9 k/uL (1.3-7.7); Neutrophils % (A) 46 %; Platelet Count 188 k/uL (150-450); RBC 4.71 m/uL (4.30-5.90); RDW 13.5 % (11.5-15.5); WBC 6.4 k/uL (3.8-10.6)
[2024-09-13 07:05] LABS: ALT 40 U/L (4-49); AST 56 U/L (17-59); African American GFR (CKD) >90 (>60 ml/min/1.73 sqM); Albumin 3.7 g/dL (3.5-5.0); Alkaline Phosphatase 74 U/L (38-126); Anion Gap 5 mmol/L; Bilirubin,Unconjugated 0.5 mg/dL (0.0-1.1); Blood Urea Nitrogen 13 mg/dL (9-20); Carbon Dioxide 26 mmol/L (22-30); Chloride 107 mmol/L (98-107); Glucose 82 mg/dL (74-99); Non-African American GFR(CKD) >90 (>60 ml/min/1.73 sqM); Sodium 138 mmol/L (137-145); Total Bilirubin 0.5 mg/dL (0.2-1.3); Total Protein 5.5 g/dL (6.3-8.2)
[2024-09-13 11:09] LABS: Chol/HDL Ratio 2.44 Ratio; LDL Cholesterol,Calculated 57.7 mg/dL (0.0-131.0)
--- NOTE | 2024-09-13 11:30 | P.PN ---
Progress Note - Text Interval History: Patient was seen in the [facility] and was directable and agreeable to speak with financial writer in the office. He was able to provide additional history. Upon further discussion today, he clarified that he had not been sleeping well in the days leading up to admission. He reports experiencing periods of poor sleep but denies association with elevated mood or an increase in activity/risky or potentially harmful behavior. He denies recent depression or persistent sadness. He is very worried about his Dad's health and is concerned about potentially losing his only remaining family member, particularly after Dad experienced some health challenges last year. Regarding other symptoms, Fabian reports appetite is improving. He does have difficulty concentrating at times. He denies excessive worry (outside of concerns about Dad), panic attacks, or recent nightmares. Energy level is normal. He enjoys reading and listening to music and does have friends, particularly at school. He feels sad about loss of some local friendships due to differing political views. He does use THC a few times per week; he denies any other substance use, reports alcohol use is rare. He does smoke 1/2 ppd. At this time patient denies any suicidal or homicidal ideations, intent or plan. Patient denies any auditory, visual hallucinations and denies any paranoia or delusions. Patient denies any side effects from the medications and has been compliant with meds. Mental Status Exam: General Appearance: Patient appears to be stated age is alert, directable, and cooperative. Behavior: Patient is calmly seated without any aggressive behavior. Mild fidgeting. Speech: Patient's speech is fluent and non-pressured. Mood/Affect: Mood is "okay", affect is incongruent and constricted. Appears anxious. Intermittently tearful. Suicidality/Homicidality: Patient denies having any suicidal or homicidal ideation, intent, or plan. Perceptions: Patient denies any visual hallucinations and denies any auditory hallucinations Though content/process: There is no evidence of any delusional thought content and thought process is somewhat tangential but redirectable. Memory and concentration: AOX3, grossly intact for the purposes of this session Judgment and insight: Questionable ASSESSMENT: Fabian Anderson is a 19 year old man with at least one prior inpatient admission for psychotic symptoms in Fall 2022. He has a history of extensive trauma/loss secondary to losing his Mother and several other family members over the last few years. Reviewed records from [facility] as they were available today. Patient was discontinued on Invega Sustenna due to side effects in September 2023. Since then he has only been prescribed Buspirone 10 mg BID, and per last [facility] note (April 2024), he was stable and not experiencing psychotic symptoms. At that time he was not using marijuana, per self-report. Additionally, he has been diagnosed with PTSD, uncomplicated bereavement, and alcohol use disorder, mild. He was able to complete his school semester and maintain part-time employment. At present the differential remains broad, including cannabis-induced psychosis and possibly prodromal schizophrenia spectrum illness vs. bipolar-spectrum symptoms. His symptoms seem to resolve then recur without persistent functional impairment. Ongoing monitoring and outpatient care accessible to the patient while he is away at college will be helpful. At this time discussed continuing Invega and resuming Buspirone; he is agreeable with this. - Unspecified psychotic disorder (consider cannabis-induced psychosis vs. schizophrenia-spectrum diagnosis/prodromal schizophrenia) - Consider unspecified bipolar disorder - Cannabis use - Nicotine dependence - History of PTSD PLAN: -Patient is admitted under voluntary status to [facility] for stabilization of psychiatric symptoms and safety. Patient has signed adult voluntary form and medication consent and is placed in patient's chart. -Medications : - Continue Invega 6 mg PO for psychotic symptoms; will move to bedtime - Resume Buspirone 10 mg BID (patient reports adherence with this at home) -Ativan and Haldol PRN for agitation/aggression -NRT -nicotine patch available; patient smokes 1/2 ppd -SW on board for discharge planning. Encourage patient to participate in groups to work on coping skills. Patient will benefit from engagement in outpatient care. May consider family meeting with patient's Dad prior to discharge to discuss patient's fears/anxieties regarding Dad's condition and a plan for continuity of care when outpatient.
[2024-09-13] MEDS: busPIRone HCl 10 MG TAB PO SCH (11:50)
--- NOTE | 2024-09-14 13:13 | P.PN ---
Progress Note - Text Interval History: Patient was seen in the hallway and was directable and agreeable to speak with marketing writer in the office. He reports feeling "better than ever" today. When asked more about this he shared that he's "feeling good." He did not get any sleep last night per nursing records; patient agrees and stated it was secondary to noise from other patients. He reports his mood as "good" and denies depression or sadness. He does have concerns about Invega contributing to erectile dysfunction in the past which made him want to discontinue the LEDEZMA previously. We discussed the potential for adding a mood stabilizer; he feels that Buspirone is helpful because it "levels me out." At one point after our initial visit he approached in the [place] and said "I'm only taking Abilify...no Depakote." Another patient was looking on. 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 He expressed willingness to be open to medication adjustment. At this time patient denies any suicidal or homicidal ideations, intent or plan. Patient denies any auditory, visual hallucinations and denies any paranoia or delusions. Patient denies any side effects from the medications and has been compliant with meds. Mental Status Exam: General Appearance: Patient appears to be stated age is alert, directable, and cooperative. Behavior: Patient is calmly seated without any aggressive behavior. Speech: Patient's speech is fluent and non-pressured. Mood/Affect: Mood is "good", affect is very bright, frequently smiling, at times incongruently smiling. Briefly tearful when discussing his Dad. Suicidality/Homicidality: Patient denies having any suicidal or homicidal ideation, intent, or plan. Perceptions: Patient denies any visual hallucinations and denies any auditory hallucinations Though content/process: There is no evidence of any delusional thought content and thought process is somewhat tangential but redirectable. Memory and concentration: AOX3, grossly intact for the purposes of this session Judgment and insight: Questionable ASSESSMENT: Fabian Anderson is a 19 year old man with at least one prior inpatient admission for psychotic symptoms in Fall 2022. He has a history of extensive trauma/loss secondary to losing his Mother and several other family members over the last few years. Reviewed records from [facility]; patient was discontinued on Invega Sustenna due to side effects in September 2023. Since then he has only been prescribed Buspirone 10 mg BID, and per last [facility] note (April 2024), he was stable and not experiencing psychotic symptoms. At that time he was not using marijuana, per self-report. Additionally, he has been diagnosed with PTSD, uncomplicated bereavement, and alcohol use disorder, mild. He was reoportedly able to complete his school semester and maintain part-time employment. At present the differential remains broad, including cannabis-induced psychosis, possibly prodromal schizophrenia spectrum illness vs. bipolar-spectrum symptoms. His symptoms seem to resolve then recur without persistent functional impairment. Ongoing monitoring and outpatient care accessible to the patient while he is away at college will be helpful. At this time discussed continuing Invega and Buspirone, may consider adding Depakote for mood stabilization. He described having had several days of little to no sleep prior to his last admis stephen, this may have been secondary to psychosis or underlying mood instability. - Unspecified psychotic disorder (consider cannabis-induced psychosis vs. schizophrenia-spectrum diagnosis/prodromal schizophrenia) - Consider unspecified bipolar disorder - Cannabis use - Nicotine dependence - History of PTSD PLAN: -Patient is admitted under voluntary status to [facility] for stabilization of psychiat andrew symptoms and safety. Patient has signed adult voluntary form and medication consent and is placed in patient's chart. -Medications : - Continue Invega 6 mg PO for psychotic symptoms - Resume Buspirone 10 mg BID (patient reports adherence with this at home) -Ativan and Haldol PRN for agitation/aggression -NRT -nicotine patch available; patient smokes 1/2 ppd -SW on board for discharge planning. Encourage patient to participate in groups to work on coping skills. Patient will benefit from engagement in outpatient care. May consider family meeting with patient's Dad prior to discharge to discuss patient's fears/anxieties regarding Dad's condition and a plan for continuity of care when outpatient.
[2024-09-14] MEDS: PALIPERIDONE 6 MG TAB.ER.24 PO SCH (20:40)
[2024-09-14] MEDS: MELATONIN 5 MG TABLET PO SCH (20:40)
[2024-09-14] MEDS: MAGNESIUM HYDROXIDE 2,400 MG/30 ML CUP PO PRN (23:27)
[2024-09-15] MEDS: DOCUSATE 100 MG CAP PO SCH (11:08)
--- NOTE | 2024-09-15 11:15 | P.PN ---
Progress Note - Text Progress Note Date: 09/15/24 Dictation was produced using Leevia dictation software. Please excuse any grammatical, word or spelling errors. Interval History: Patient was seen in the hallway and was directable and agreeable to speak with screenplay writer in the office. States that he has been feeling well aside from the upset stomach for "few weeks, months or years for now who knows." Reported that his mood is "very good, I don't need Depakote." Reported that he get seasonal depression and anxiety, hard to focus and concentrate, denied any current depression or anxiety. Reported that his sleep was interrupted last night since a peer was loud, and someone was staring at him. He denied any current SI/HI, intention or plan or AVH, reported that he has been telling the truth. His speech was fast, however redirectable. He states that he is getting along well with everyone in the unit. States that he has been taking Buspar which he reported to be helpful, and reported that he does not want to take Invega, reported that he was taking Invegta for about a year and affected his libido reported that he has been seeing [facility] and they stopped Invega, reported that he got a "shot on Invega while here, and my libido is bad again." He states that been eating good. Sleep reported as 2 hours. He lacks insight into his mental illness, has been refusing Invega. Encouraged patient to consider taking his medication. Mental Status Exam: General Appearance: Patient appears to be stated age is alert, directable, and cooperative. Behavior: Patient is calmly seated without any aggressive behavior. Speech: Patient's speech is fluent and non-pressured. Mood/Affect: Mood is "very good", affect is pleasant, frequently smiling, at diana es incongruently smiling. Suicidality/Homicidality: Patient denies having any suicidal or homicidal ideation, intent, or plan. Perceptions: Patient denies any visual hallucinations and denies any auditory hallucinations Though content/process: There is no evidence of any delusional thought content and thought process is somewhat tangential but redirectable. Memory and concentration: AOX3, grossly intact for the purposes of this session Judgment and insight: poor Impression: - Unspecified psychotic disorder (consider cannabis-induced psychosis vs. schizophrenia-spectrum diagnosis/prodromal schizophrenia) - Consider unspecified bipolar disorder - Cannabis use - Nicotine dependence - History of PTSD Assessment/PLAN: Continue with current diagnosis. Patient continues to meet criteria for inpatient psychiatric admission for symptom stabilization and safety. Patient will be maintained on current psychotropic medication regimen. Monitor for medication compliance and for any psychotropic medication side effects. Patient has been refusing Invega, was encouraged to consider restarting today, he refused to consider other mood stabilizer at this time. He signed in voluntary. Will continue to monitor ongoing response to treatment. Patient reported upset stomach, milk of magnesia and prune juice was given, continue to monitor, patient was encouraged participation in milieu.
[2024-09-15] MEDS: polyethylene glycoL 3350 17 GM POWD.PACK PO SCH (13:39)
[2024-09-15] MEDS: haloperidoL 5 MG TAB PO PRN (18:57)
[2024-09-16] MEDS ORDERED: DOCUSATE 100 MG CAP PO SCH (09:00)
--- NOTE | 2024-09-16 11:20 | P.PN ---
Progress Note - Text Progress Note Date: 09/16/24 Dictation was produced using Tr[employer] dictation software. Please excuse any grammatical, word or spelling errors. Interval history: Patient was seen in the hallway and was directable and agreeable to speak with the commercial underwriter in the office for psychiatric follow-up. States that he is feeling really well today, his stomach is not hurting anymore, reported that he is getting his appetite back. Reported that his mood is "happy" today. Denied any current depression or anxiety, denied any current SI/HI intention or plan. He denied any current AVH. He states that his sleep was really good last night, reported "best sleep I had for a while." Reported that he was able to take his medication last night including Invega, and Buspar, he denied any current side effects. He states that he was talking to another pt "Sascha Boone" about other meds and he scared him about trying other medication. Pt was asked to consider Abilify or Depakote since he reported Invega affected his libido, pt was encouraged to speak with his psychiatrist tomorrow about it and he agreed. Mental status exam: General Appearance: Patient appears to be stated age is alert, directable, and cooperative. Behavior: Patient is calmly seated without any aggressive behavior. Speech: Patient's speech is fluent and non-pressured. Mood/Affect: Mood is "happy", affect is pleasant. Suicidality/Homicidality: Patient denies having any suicidal or homicidal ideation, intent, or plan. Perceptions: Patient denies any visual hallucinations and denies any auditory hallucinations Though content/process: There is no evidence of any delusional thought content and thought process is somewhat tangential but redirectable. Memory and concentration: AOX3, grossly intact for the purposes of this session Judgment and insight: improving Assessment/Plan: Continue with current diagnosis. Patient continues to meet criteria for inpatient psychiatric admission for symptom stabilization and safety. Patient will be maintained on current psychotropic medication regimen. Monitor for medication compliance and for any psychotropic medication side effects. Will continue to monitor ongoing response to treatment. Patient was educated on Abilify and Depakote since he reported prior history of Invega affecting his libido, he reported that he is not considering switching at this time and he was encouraged to discuss with his psychiatrist tomorrow and says he needs time to think about it. Encouraged participation in milieu.
[2024-09-17] MEDS: IBUPROFEN 600 MG TAB PO PRN (05:13)
--- NOTE | 2024-09-17 16:45 | P.PN ---
Progress Note - Text Progress Note Date: 09/17/24 Interval history: Patient was seen in the hallway and was directable and agreeable to speak with the typewriter assembler in the office for psychiatric follow-up. 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 He states his mental health problems started when his father had a stroke 2 years ago. He states he misses his father and regrets missing most of his [place] break. He appears to minimize his anxiety, reports he's "good". He appears depressed and anxious. He has a history of using cannabis. We spoke with father on the phone with patient's permission, father reports patient appears depressed and anxious, on edge, not violent, decreased sleep with difficulty falling asleep and staying asleep, mood swings. Patient states he was up late working to fix a research paper he had submitted. Father reports he would be up at night and take naps during the day. The night he came to the hospital, patient "jumped out the window". Father says patient thinks he's "up his ass all the time", they tend to banter. They tend to argue. Father reports patient had not taken his Buspar which is prescribed by [facility]. There is a history of depression in the family in his family. Father reports mother would take medication for depression and anxiety. Patient appears to get more anxious and on edge when talking to father on the phone. Fabian reports on the night was hospitalized he was bored and wanted to go for a walk. Fabian reports this [place] was not fun, he reports it was the "most depressing [place]" for various reasons. Fabian says he has family members that he would like to get to know and he would like to do more activities with his father. Father confirms patient is very anxious. Patient is tearful, depressed, says he worries about losing his dad. Both patient and father are tearful. Patient denies SI/HI, intent or plan. He reports the Invega is giving the sexual side effects. Mental status exam: General Appearance: Patient appears to be stated age, slender, reddish blonde hair, dressed in casual attire. Behavior: Patient is seated without any aggressive behavior, sits with arms crossed. Speech: Patient's speech is fluent and non-pressured. Mood/Affect: Mood is "worried", affect is pleasant. Suicidality/Homicidality: Patient denies having any suicidal or homicidal ideation, intent, or plan. Perceptions: Patient denies any visual hallucinations and denies any auditory hallucinations Though content/process: There is no evidence of any delusional thought content and thought process is somewhat tangential but redirectable. Memory and concentration: AOX3, grossly intact for the purposes of this session Judgment and insight: Improving Assessment: Major depressive disorder, single episode, moderate to severe Unspecified anxiety disorder Unspecified psychotic disorder, r/o MDD with psychotic features and Cannabis- induced psychotic disorder Cannabis use disorder Plan: Patient continues to meet criteria for inpatient psychiatric admission for symptom stabilization and safety. Patient will be maintained on current psychotropic medication regimen. Monitor for medication compliance and for any psychotropic medication side effects. Will continue to monitor ongoing response to treatment. Start Zoloft 50 mg daily for depression/anxiety. Decreased Invega 6 mg QHS to 3 mg QHS for mood/psychosis. Continue Buspar 10 mg TID for anxiety. Encouraged participation in milieu.
[2024-09-17] MEDS: SERTRALINE 50 MG TAB PO SCH (16:51)
[2024-09-18 07:11] VITALS: RESP 16
--- NOTE | 2024-09-18 13:53 | P.PN ---
Progress Note - Text Progress Note Date: 09/18/24 Interval History: Patient was seen wandering the hallways and was directable and agreeable to sp marilyn with tag writer in the office. He states feeling well other than experiencing constipation. He has tried stool softeners yet still has not had a bowel movement in several days. He was encouraged to also take MiraLAX in addition to the other stool softeners. Patient appears to minimize symptoms as he described himself is doing well however staff noted he was hyperverbal with poor insight. He noted to have seasonal components to depression and states that Invega causes sexual dysfunction that improved with the lower dose. Patient of note did not receive a lower dose of the Invega last night and is still at 6 mg. He reported low anxiety and denied any paranoia. 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 At this time patient denies any suicidal or homicidal ideations, intent or plan. Patient denies any auditory, visual hallucinations and denies any paranoia or delusions. Patient denies any side effects from the medications and has been compliant with meds. Mental Status Exam: General Appearance: Patient appears to be stated age is alert, directable, and cooperative. Behavior: Patient is calmly seated without any agitated behavior. Speech: Patient's speech is fluent and nonpressured. Mood/Affect: Mood is improving mildly, affect is congruent and full range, bright. Suicidality/Homicidality: Patient denies having any suicidal or homicidal ideation intent or plan. Perceptions: Patient denies any visual hallucinations and denies any auditory hallucinations Though content/process: There is no evidence of any delusional thought content and thought process is linear and goal-directed. Memory and concentration: AOX3, grossly intact for the purposes of this session Judgment and insight: Improving mildly Assessment Major depressive disorder, single, moderate Psychosis, unspecified, rule out MDD with psychotic features versus cannabis induced psychotic disorder Cannabis use disorder Plan: -Patient continues to meet criteria for inpatient psychiatric admission for symptom stabilization and safety. Patient has signed adult voluntary form and medication consent and was placed in patient's chart. -Medications: Continue Zoloft 50 mg daily for depression/anxiety, Invega 6 mg at bedtime for psychosis, BuSpar 10 mg 3 times daily for anxiety -When necessary Ativan and Haldol for agitation/aggression. -Labs: Reviewed -SW on board for discharge planning. Encouraged the patient to participate in milieu. Anticipate discharge back home on
[2024-09-19 07:24] VITALS: BP 134/84; PULSE 86; TEMP 98.3
--- NOTE | 2024-09-19 13:44 | P.DS ---
Providers Date of admission: 09/12/24 03:45 Expected date of discharge: 09/19/24 Attending physician: Shannan Rubin MD Consults: 09/12/24 03:47 Consult Physician Routine Consulting Provider: Judi Saeed Consult Reason/Comments: H & P Do you want consulting provider notified?: Yes, Notify in am Primary care physician: Steven Orr - Discharge Diagnosis(es) (1) Major depression Current Visit: Yes Status: Acute Priority: High (2) Psychosis Current Visit: Yes Status: Acute Priority: High (3) Cannabis use disorder Current Visit: Yes Status: Acute Priority: Medium Hospital Course: Admission HPI: Admission note was completed by Dr. Dalal "Fabian Anderson is a 19 year old man with a history of psychosis and trauma who presented to the ER, petitioned by his father, due to concern for abnormal behavior. He was admitted overnight and seen this morning. He received Haldol/Ativan shortly after arriving on the unit after becoming acutely agitated and aggressive; he subsequently slept the rest of the morning. At the time of the evaluation he was asleep but did awake and was willing to engage though shared he was "tired." When asked what brought him into the hospital he said "I really do not remember". 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 He went on to say that he has been experiencing a lot of "anxiety" lately and is open to being in the hospital because he wants to feel "better". He denies experiencing sadness or depressed mood recently. When asked how his semester went he was unable to elaborate. He did not clearly answer questions about sleep, appetite, or energy. However he was able to read aloud and understand the documentations for voluntary admission to the hospital and was agreeable to admission. He also was open to resuming medications that have been helpful for him in the past following our discussion. He denies experiencing auditory or visual hallucinations, though he was observed gesturing during the conversation and ways that were not completely congruent with his speech. In addition, he denies suicidal and homicidal ideation, intent, and plan. Mr. Anderson reports occasional use of marijuana, though he stated he has "not use any recently". UDS on admission was positive for cannabinoids. He denies drinking alcohol and also denies using cocaine, heroin, methamphetamine, LSD, or PCP. Additional information regarding the patient's presentation is available via the EPS Assessment note. Per EPS Assessment: "Patient had been brought in by his father, who petitioned patient and was sitting in the hallway. Petition states "talks to himself and makes random hand movements". Patient was responding to internal stimuli as card writer hand entered the room. Patient denies SI,HI,A/VH. Patient states "I've been trying to profess like Leonid Gamez" "I hear everything, new prying eyes" "I selpt very long for everyone, packet right, could never score". During assessment patient is making bizzare hand gestures and at times whispering towards the television. Patient tone of voice varies, he begins to talk with an accent at times. Patient appears dissheveled is labile- going from crying to banging pillow on stretcher and yelling. Patient makes bizarre noises with his mouth "I can't help but slip into other tongues" "I have PTSD losing my mom at 13, ever since COVID in " then begins laughing inappropriately. Patient repeated 2-3x "Lord over us in their tiny Thaddeus sprinkle dink vote for little orange man". Chipper Operator spoke privately with father. Patient father stated in his senior year of high school pt friend committed suicide, pt mother in 2014, pt grandmother in 2022, pt father had stroke in March 2023 and his grandfather the same day. Patient father states pt stopped following up with outpt treatment, is taking 15 credit hours, was working 20+ hr weekly with the [employer] and was still battling his uncles for his mother's estate in probate which finalized 09/03/24. Patient father stated patient came home from college 08/24/24 and progressively began getting worse, has not slept more then 3 hrs in 72 hr time period. Patient father began giving pt old prescription of buspar 10 mg po daily for last 3 days without success. Patient father state's patient tries to stay busy but has not dealt with all the trauma and processed the in their family."" Hospital course: Upon admission to the unit patient was directable and agreeable to commence treatment and signed adult voluntary form.. Patient got along well with other patients on the unit and followed unit protocol. Patient did exhibit agitation regarding his inability to have a bowel movement however he did not require any as needed medications and was apologetic after words for his behavior. Patient was intermittently compliant with the medications and reported sexual dysfunction that improved throughout his stay. Patient was started on Invega and this was increased to 6 mg at bedtime for psychosis, Zoloft started at 50 mg daily for depression/anxiety, BuSpar 10 mg 3 times daily for anxiety. Patient spoke of his stressors and engaged in therapy both group and individual. Patient was also seen by medical team for history and physical exam. Throughout the course of the hospitalization patient gradually improved with regards to mood, anxiety, sleep and returned back to their baseline level of functioning. On the day of discharge patient denied any suicidal or homicidal ideations intent or plan denied any auditory or visual hallucinations. The patient denied any access to guns or weapons. Patient denied any paranoia and did not endorse any delusions. Patient does not have a significant history of substance abuse and was counseled on abstaining from all substances including alcohol and marijuana. Patient was also counseled on the medications and need for regular compliance and was encouraged to follow-up with their outpatient appointment for mental health and also for primary care. Prior to discharge a family meeting will be arranged by social worker health services to answer any questions and ensure safety upon discharge incuding making sure that guns/weapons are either removed from the home or locked away. Patient to be discharged back home with father with [facility] follow-up. Mental status exam: General Appearance: Patient appears to be stated age is alert, pleasant, and cooperative. Patient is in no acute distress and has improved hygiene and grooming. He wears glasses Behavior: Patient is calmly seated without any agitated behavior. Speech: Patient's speech is fluent and nonpressured. Mood/Affect: Patient reports their mood is "better", affect is congruent and euthymic. Suicidality/Homicidality: Patient denies having any suicidal or homicidal ideation intent or plan. Perceptions: Patient denies any auditory or visual hallucinations. Though content/process: There is no evidence of any delusional thought content and thought process is linear and goal-directed. Memory and concentration: AOX3, grossly intact for the purposes of this session. Can spell "WORLD" backwards correctly. Judgment and insight: Chronically poor, however has improved with guarded prognosis Impression: Major depressive disorder Psychosis unspecified Cannabis use disorder Plan: -Continue with discharge today as patient has improved and stabilized psychiatrically and is not currently an imminent threat to themself and/or others. -Continue medications: Invega 6 mg at bedtime, Zoloft 50 mg daily, BuSpar 10 mg 3 times daily -Patient was counseled on the need for medication compliance and appropriate follow-up at mental health and also primary care for medical issues. Patient verbalized understanding and agreed. -Social work to help coordinate patients discharge today arrange for and conduct family meeting to ensure safety upon discharge and answer any questions/concerns. also to ensure safe home environment that guns/weapons are either removed from the home or locked away. Social work also to arrange for patients follow up appointments with [facility] for psychiatric care along with follow up with primary care provider. -Patient counseled on abstaining from recreational drugs and marijuana and alcohol. Was informed/educated on the adverse effects on their physical and mental health. Patient verbally agreed and understood. -Patient was instructed to return to the hospital or seek immediate medical care if their psychiatric or medical symptoms do worsen or reoccur. Abnormal Labs 09/12/24 09/12/24 09/13/24 02:10 02:10 06:12 Total Protein 5.5 L Urine Ketones 1+ H U Marijuana (THC) Screen Detected H Vital Signs Temp 98.3 F 09/19/24 06:29 Pulse 86 09/19/24 06:29 Resp 16 09/19/24 06:29 BP 134/84 09/19/24 06:29 Pulse Ox 97 09/19/24 06:29 FiO2 Allergies Allergy/AdvReac Type Severity Reaction Status Date / Time No Known Allergies Allergy Verified 03/08/24 08:43 Plan - Discharge Summary Discharge Rx Participant: No New Discharge Prescriptions: New busPIRone HCl [Buspar] 10 mg PO BID 30 Days #60 tab Nicotine 14Mg/24Hr Patch [Habitrol] 1 patch TRANSDERM DAILY 30 Days #30 patch Paliperidone [Invega] 6 mg PO HS 30 Days #30 tab Melatonin 5 mg PO HS 30 Days #30 tab Sertraline [Zoloft] 50 mg PO DAILY 30 Days #30 tab Discontinued Paliperidone IM [Invega Sustenna] 156 mg IM ONCE Paliperidone IM [Invega Sustenna] 156 mg IM ONCE #1 ml Discharge Medication List Melatonin 5 mg PO HS 30 Days #30 tab 09/19/24 [Rx] Nicotine 14Mg/24Hr Patch [Habitrol] 1 patch TRANSDERM DAILY 30 Days #30 patch 09/19/24 [Rx] Paliperidone [Invega] 6 mg PO HS 30 Days #30 tab 09/19/24 [Rx] Sertraline [Zoloft] 50 mg PO DAILY 30 Days #30 tab 09/19/24 [Rx] busPIRone HCl [Buspar] 10 mg PO BID 30 Days #60 tab 09/19/24 [Rx] Follow up Appointment(s)/Referral(s): [place] [place] [facility] [Outside] - 09/21/24 1:00 pm (09/21/2024 1:00PM - 2:00PM MARCO A JAVIER 09/26/2024 9:30AM - 10:00AM SHEBA FIGUEROA ) Steven Orr DO [Primary Care Provider] - 1-2 days Patient Instructions/Handouts: How to Stop Smoking (DC), Depression (DC), Brief Psychotic Disorder (DC), Cannabis Abuse (DC) Activity/Diet/Wound Care/Special Instructions: [facility] Discharge Info Avoid the use of street drugs and alcohol. Take all medications as prescribed. When you are in need of refills on your medications, please contact your outpatient medical provider and/or outpatient psychiatrist. Please go to your scheduled outpatient appointments for aftercare treatment. If symptoms return or become worse, call the crisis line at or and/or visit the nearest emergency room for assistance. National Suicide and Crisis Lifeline - call or text 878 Discharge Disposition: HOME SELF-CARE
== END 2024-09-19 12:50 | disposition home or self-care (01) | DRG 885 ==
LOC: SUPCPDRO 20:29 → EC 20:29 → 3MHU 09-12 03:45
PROVIDERS: ADMIT Psychiatry & Neurology Psychiatry; ATTEND Psychiatry & Neurology Psychiatry
DX: F32.1 Major depressive disorder, single episode, moderate (principal); R45.851 Suicidal ideations; F23 Brief psychotic disorder; F41.9 Anxiety disorder, unspecified; F43.10 Post-traumatic stress disorder, unspecified; K59.00 Constipation, unspecified; Z79.899 Other long term (current) drug therapy; F17.210 Nicotine dependence, cigarettes, uncomplicated; F12.10 Cannabis abuse, uncomplicated; F10.10 Alcohol abuse, uncomplicated; Z71.41 Alcohol abuse counseling and surveillance of alcoholic; Z82.3 Family history of stroke; Z81.8 Family history of other mental and behavioral disorders; Z71.51 Drug abuse counseling and surveillance of drug abuser
CPT/HCPCS: 80053; 80061; 80306; 81003; 82075; 82248; 83036; 84443; 85025; 87635; 99285